=== PATIENT | male | born 1975 | race African-American/Black ===

== ENCOUNTER 2019-03-18 07:11 | Emergency (ER) | payer MEDICAID ==
[~2019-03-18] VITALS: Ht 182.9 cm; Wt 82.0 kg
[2019-03-18 07:31] VITALS: BP 176/88
== END 2019-03-18 08:43 | disposition home or self-care (01) ==
LOC: ER 07:11
DX: B34.9 Viral infection, unspecified (principal)
CPT/HCPCS: 99282